=== PATIENT | male | born 1965 | race Caucasian/White ===

== ENCOUNTER 2016-04-04 09:58 | Outpatient (CLI) | payer MEDICARE | END 2016-04-04 09:59 | disposition home or self-care (01) | LOC: NC 09:58 | PROVIDERS: ATTEND Family Medicine | DX: E11.9 Type 2 diabetes mellitus without complications (principal); Z71.3 Dietary counseling and surveillance; Z68.42 Body mass index [BMI] 45.0-49.9, adult ==

== ENCOUNTER 2016-04-30 10:13 | Outpatient (CLI) | payer MEDICARE | END 2016-04-30 10:14 | disposition home or self-care (01) | LOC: NC 10:13 | PROVIDERS: ATTEND Family Medicine | DX: E11.9 Type 2 diabetes mellitus without complications (principal) ==